=== PATIENT | female | born 1960 | race Caucasian/White ===

== ENCOUNTER 2023-10-24 06:58 | Day surgery (SDC) | payer OTHER ==
--- NOTE | 2023-10-18 16:59 | NUR ---
PHONE CALL TO PT GAUTAM ANSWER LEFT MESSAGE.
[~2023-10-24] VITALS: Ht 165.1 cm; Wt 68.2 kg
[~2023-10-24 06:58] MED LIST: BAYER CHEWABLE81 MG PO; FOSAMAX70 MG PO; LACTATED RINGER'S 1,000 ML IV SCH; VENTOLIN HFA18 GM
[2023-10-24] MEDS ORDERED: LIDOCAINE HCL 1% 5 ML SDV INJ ONE (07:00)
[2023-10-24] MEDS ORDERED: CEFAZOLIN SODIUM 2 GM/20 ML SYR IV SCH (07:00)
[2023-10-24] MEDS ORDERED: IBLOOD GLUCOSE TEST STRIP 1 EA TEST VI PRN ×2 (07:00→09:30)
[2023-10-24 07:16] VITALS: BP 117/77
--- NOTE | 2023-10-24 07:23 | NUR ---
PT CHANGING DURING SPIRITUAL CARE ROUNDS; UNABLE TO VISIT. PROVIDED PRAYER.
[2023-10-24] MEDS ORDERED: OXYMETAZOLINE HCL 30 ML BTL NAS SCH (07:30)
[2023-10-24] MEDS ORDERED: DEXAMETHASONE SOD PHOS 4 MG/ML VIAL ONE (08:54)
[2023-10-24] MEDS ORDERED: ACETAMINOPHEN 1,000 MG/100 ML VIAL ONE (08:54)
[2023-10-24] MEDS ORDERED: LIDOCAINE HCL 2% 5 ML SDV ONE (08:54)
[2023-10-24] MEDS ORDERED: propofoL 200 MG/20 ML VIAL ONE (08:54)
[2023-10-24] MEDS ORDERED: fentaNYL citrate 100 MCG/2 ML VIAL ONE (08:54)
[2023-10-24] MEDS ORDERED: ondansetron HCL 4 MG/2 ML VIAL ONE (08:54)
[2023-10-24] MEDS ORDERED: HYDROmorphone HCL 1 MG/ML SYR IV PRN (09:30)
[2023-10-24] MEDS ORDERED: ondansetron HCL 4 MG/2 ML VIAL IV PRN (09:30)
[2023-10-24] MEDS ORDERED: PROCHLORPERAZINE EDISYLATE 10 MG/2 ML VIAL IV PRN (09:30)
[2023-10-24] MEDS ORDERED: NALOXONE HCL 0.4 MG SYR IV PRN (09:30)
[2023-10-24] MEDS ORDERED: droPERidol 5 MG/2 ML VIAL IV PRN (09:30)
[2023-10-24] MEDS ORDERED: fentaNYL citrate 50 MCG/ML SDV IV PRN (09:30)
[2023-10-24] MEDS ORDERED: dexmedeTOMIDine HCl 200 MCG/2 ML VIAL ONE (09:42)
[2023-10-24 10:15] VITALS: BP 140/73
[2023-10-24] MEDS ORDERED: HYDROCODONE/ACETA 5/325 TAB PO PRN (10:30)
--- NOTE | 2023-10-24 10:32 | NUR ---
1015 PT ARRIVED FROM PACU TO DAY SURGERY ROOM 5. REPORT TAKEN FROM FUNMI Barton RN. PT BREATHING EQUAL AND UNLABORED. PT REPORTS 4/10 TOLERABLE PAIN. PT HAS PACKING IN PLACE. VITALS TAKEN, IV ASSESSED. PT ABLE TO TOLERATE PO WATER. PT ABLE TO TOLERATE PO CRACKERS. PT RESTING IN BED, LOW AND LOCKED, PT HAS CRACKERS AND WATER AT BEDSIDE. 1025 ATTEMPTED TO CALL PER PT REQUEST, PT DID NOT ETHICAL HACKER PHONE.
--- NOTE | 2023-10-24 10:36 | NUR ---
1015 PT LEFT EYE WATERY AND HAS A HARD TIME OPENING. PT REPORTS NO PAIN OR VISION LOSS ON THIS SIDE. DR LAINEZ TESTED VISION IN PACU AND NO VISION LOSS.
--- NOTE | 2023-10-24 10:39 | NUR ---
1035 PT RETURNED PHONE CALL, INFORMED PT IS BACK IN ROOM.
[2023-10-24 11:18] VITALS: BP 132/75
--- NOTE | 2023-10-24 11:20 | NUR ---
1120 HOURLY ROUNDING DONE. VITALS TAKEN. IV ASSESSED. PT REPORTS FEELING LIKE SHE CAN URINATE. PT AT BEDSIDE.
--- NOTE | 2023-10-24 11:47 | NUR ---
LE 1125 PT ABLE TO VOID 600 MLS URINE 1130 DISCHARGE INFORMATION GONE OVER WITH PT AND AT BEDSIDE, NO FURTHER QUESTIONS AT THIS TIME 1135 IV DISCONTINUED, AND PT ABLE TO DRESS ON OWN 1137 PT DISCAHRGED FROM DAY SURGERY TO HOME VIA WHEELCHAIR OUT TO THE FRONT OF THE HOSPITAL TO PT HUSBANDS CAR
--- NOTE | 2023-10-24 11:52 | OR ---
[facility] [address] [place], [place] [address] Signed DATE OF OPERATION: 10/24/2023 SURGEON: Sushil Lainez MD PREOPERATIVE DIAGNOSIS: Chronic pansinusitis. POSTOPERATIVE DIAGNOSIS: Chronic pansinusitis. PROCEDURE: Bilateral pansinusotomies. ANESTHESIA: General, LMA; ROOM SERVICE FOOD SERVER, Junior PREOPERATIVE HISTORY: Laurent is a 63-year-old lady with chronic sinus infections, multiple infections, multiple antibiotics, and persistent abnormalities on CAT scan. After appropriate course of antibiotics, steroids, etc., she is taken to the operating room for the above-mentioned procedures for persistent unremitting chronic sinusitis. OPERATIVE PROCEDURE AND FINDINGS: After informed consent, the patient was taken to the operating room, placed in the supine position, where general LMA anesthesia was induced. The patient and procedure were verified. The patient received preoperative intranasal oxymetazoline intravenous Ancef. The preop CT was viewed throughout. The left side was then approached first. Speculum headlight exam showed purulence coming from the middle meatus. The middle turbinate was medialized. Ethmoid bulla and anterior ethmoid air cells were taken down with the Neva. There was polypoid material, purulence granular tissue. Posterior ethmoids were opened, same findings. Nasofrontal duct was opened, there was polypoid material, there were purulence, all removed. The middle meatal antrostomy was made with a curving curette. The maxillary sinus was filled with purulence granular tissue. The tissue was removed, sent to Pathology. Bleeding was controlled after the procedure. Packing was then placed. A Kaur pack coated with Neosporin in the middle meatus and a trimmed Merocel pack in the nasal cavity. Hemostasis was verified. Same procedure on the right side, there was much or less infection and some polypoid material, but no purulence. Same procedure and same packing strings tied anteriorly over a pad. Hemostasis was verified. The pharynx was suctioned clear of blood and secretions. The patient was then awakened, extubated, and transported to the recovery room in good Electronically Signed By: SUSHIL LAINEZ MD 10/24/23 1152 PATIENT NAME: LAURENT HOLCOMB OPERATIVE REPORT DATE OF : 62 REPORT #: [id number] PHYSICIAN: SUSHIL LAINEZ MD PCP: MAGNUS LEAVITT REPORT IS CONFIDENTIAL AND NOT TO BE RELEASED WITHOUT AUTHORIZATION [facility] [address] [place] [id number] Signed condition. No complications. BLOOD LOSS: Around 100 mL. SPECIMEN TO PATHOLOGY: Left and right sinus contents separately. PACKING: Two pieces of Merocel in each nostril. COMPLICATIONS: No complications. DRAINS: No drains. Sushil Lainez MD GC/IVANL /[id number] Copies: ~ Electronically Signed By: SUSHIL LAINEZ MD 10/24/23 1152 PATIENT NAME: LAURENT HOLCOMB OPERATIVE REPORT DATE OF : 62 REPORT #: [id number] PHYSICIAN: SUSHIL LAINEZ MD PCP: MAGNUS LEAVITT REPORT IS CONFIDENTIAL AND NOT TO BE RELEASED WITHOUT AUTHORIZATION
--- NOTE | 2023-10-24 13:49 | NUR ---
10/24/23 1349 Sheets,Yelena 0923 PT ARRIVED TO PACU ON 6L VIA MASK WITH ORAL AIRWAY IN PLACE. PT STARTS TO WAKE AND MOVE IN BED. RESP EVEN AND UNLABORED. 0940 PT WAKES TO VERBAL STIMULI AND FOLLOW COMMANDS TO OPEN HER MOUTH. ORAL AIRWAY REMOVED AND O2 MASK REMOVED. PT STARTS SHAKING, PT DENIES NAUSEA AND BEING COLD. 0944 ELECTRODYNAMICIST GIVING MEDICATION TO HELP WITH SHAKING. 0950 MD AT BEDSIDE AND CHECKS PT VISIAL SMITH. PT HAVING A HARD TIME OPENING HER LEFT EYE, PT DENIES ANY VISIAL CHANGES. NO PAIN OR NAUSEA. PT REPORTS DRY MOUTH, SHAKING HAS DECREASED. 1015 PT RETURNED TO DS AND CONTINUES DENY CONCERNS. PT LEFT OPEN MORE OPEN AND CONTINUES TO DENY ANY PROBLEMS WITH IT. VSS AND ALL QUESTIONS ANSWERED.
--- NOTE | 2023-10-30 11:55 | PATH ---
[facility] [address] [facility] [place], [place] [address] Signed SPECIMEN(S): A LEFT SINUS CONTENTS SPECIMEN(S): B RIGHT SINUS CONTENTS SPECIMEN SOURCE: A. LEFT SINUS CONTENTS B. RIGHT SINUS CONTENTS CLINICAL HISTORY: Chronic sinusitis FINAL PATHOLOGIC DIAGNOSIS: A. Left sinus contents: - Respiratory mucosa with moderate chronic inflammation - Lymphoplasmycte to eosinophil ratio is approximately 10:1 - No significant neutrophilic inflammation is present B. Right sinus contents: - Respiratory mucosa with moderate chronic inflammation - Lymphoplasmycte to eosinophil ratio is approximately 10:1 - No significant neutrophilic inflammation is present MICROSCOPIC EXAMINATION: Histologic sections of all submitted blocks are examined by light microscopy. These findings, together with the gross examination, support the pathologic diagnosis. GROSS DESCRIPTION: A. The specimen, labeled and designated "Morter, " and designated on the requisition "left sinus contents," is received in formalin and consists of multiple fragments of pink-farrell to red-brown soft tissue and bone (2.5 x 1.4 x 0.4 cm in aggregate). The specimen is submitted entirely in cassette A1. B. The specimen, labeled and designated "Morter, " and designated on the requisition "right sinus contents," is received in formalin and consists of multiple fragments of pink-farrell to red-brown soft tissue and bone (2.5 x 2.0 x 0.4 cm in aggregate). The specimen is submitted entirely in cassette B1. AC (under the direct supervision of a pathologist) The Gross Description was prepared using a voice recognition system. The report was reviewed for accuracy; however, sound-alike word errors, addition and/or deletions may occur. If there is any question about this report, please contact Client Services. PATIENT NAME: LAURENT HOLCOMB PATHOLOGY DATE OF : 62 REPORT #: [id number] PHYSICIAN: JI MURCIA PCP: MAGNUS LEAVITT REPORT IS CONFIDENTIAL AND NOT TO BE RELEASED WITHOUT AUTHORIZATION [facility] [address] [facility] [place], [place] [address] Signed ADDITIONAL NOTES: Immunohistochemical and/or in situ hybridization studies if performed in this case included appropriate positive controls that reacted as expected. This test was developed and its performance characteristics determined by [facility]. It has not been cleared or approved by the U.S. Food and Drug Administration. The FDA has determined that such clearance or approval is not necessary. This test is used for clinical purposes. It should not be regarded as investigational or for research. [facility] is certified under the Clinical Laboratory Improvement Amendments of 1988 (CLIA) as qualified to perform high complexity clinical laboratory testing. PERFORMING LABORATORY: Technical component was performed by [facility], [address] [place] [address] (CLIA# [id number]). Professional interpretation was performed by [facility] [address] [place] [id number] Diagnostician: Paul Tan MD Pathologist Electronically Signed 10/30/2023 Copies: ~ PATIENT NAME: LAURENT HOLCOMB PATHOLOGY DATE OF : 62 REPORT #: [id number] PHYSICIAN: JI PATHOLOGY PCP: MAGNUS LEAVITT REPORT IS CONFIDENTIAL AND NOT TO BE RELEASED WITHOUT AUTHORIZATION
== END 2023-10-24 11:37 | disposition home or self-care (01) ==
LOC: DS 06:58
PROVIDERS: ATTEND Otolaryngology
PROC: 09BQ4ZZ Excision of Right Maxillary Sinus, Percutaneous Endoscopic Approach (ICD-10-PCS; 2023-10-24)
PROC: 09BR4ZZ Excision of Left Maxillary Sinus, Percutaneous Endoscopic Approach (ICD-10-PCS; principal; 2023-10-24 08:40)
DX: J32.4 Chronic pansinusitis (principal)
CPT/HCPCS: 00160; J0131; J0690; J1100; J2001; J2405; J2704; J3010; J7121